=== PATIENT | male | born 1970 | race Caucasian/White ===

== ENCOUNTER → 2016-06-30 | Outpatient (CLI) | payer BC | END | disposition home or self-care (01) | LOC: CDC 15:23 | DX: Z01.810 Encounter for preprocedural cardiovascular examination (principal); K43.9 Ventral hernia without obstruction or gangrene | CPT/HCPCS: 93000 ==

== ENCOUNTER 2016-07-08 05:25 | Day surgery (SDC) | payer BC ==
[~2016-07-08] VITALS: Ht 180.3 cm; Wt 94.0 kg
[~2016-07-08 05:25] MED LIST: ADVIL200 MG PO; ANTI-DIARRHEAL2 M2 PO; BENICAR40 MG PO; SINUS & ALLERG1 EACH PO
[2016-07-08 06:07] VITALS: BP 121/83
[2016-07-08] MEDS ORDERED: NORCO 5/3251 TABLET PO (08:30)
[2016-07-08 10:00] VITALS: BP 122/78
[2016-07-08 11:08] VITALS: BP 122/80
== END 2016-07-08 11:30 | disposition home or self-care (01) ==
LOC: SDC 05:25
PROC: 0WUF4JZ Supplement Abdominal Wall with Synthetic Substitute, Percutaneous Endoscopic Approach (ICD-10-PCS; principal; 2016-07-08)
DX: K43.2 Incisional hernia without obstruction or gangrene (principal); E78.5 Hyperlipidemia, unspecified; F41.1 Generalized anxiety disorder; I10 Essential (primary) hypertension; Z87.891 Personal history of nicotine dependence; Z82.49 Family history of ischemic heart disease and other diseases of the circulatory system; Z80.0 Family history of malignant neoplasm of digestive organs; Z82.0 Family history of epilepsy and other diseases of the nervous system; Z84.1 Family history of disorders of kidney and ureter; Z80.3 Family history of malignant neoplasm of breast
CPT/HCPCS: C1781; J0330; J0690; J1100; J1170; J2250; J2405; J2710; J3010; S0020